=== PATIENT | male | born 1955 | race Caucasian/White ===

== ENCOUNTER 2016-09-18 03:16 | Inpatient (IN) ==
[2016-09-13 10:11] LABS: MANUAL DIFF NEEDED? NO; URINE MICRO REVIEW NEEDED? NO; URINE SOURCE CLEAN CATCH
--- NOTE | 2016-09-13 10:15 | EKG Report ---
Test Performed on : 09/13/2016 09:38:10 AM Test Reason : PAT Blood Pressure : / mmHG Vent. Rate : 067 BPM Atrial Rate : 067 BPM P-R Int : 170 ms QRS Dur : 094 ms QT Int : 422 ms P-R-T Axes : 049 -12 074 degrees QTc Int : 445 ms Normal sinus rhythm. Possible Left atrial enlargement Borderline ECG When compared with ECG of 18-MAY-2012 12:30, ST less depressed in aVL T waves inverted in V1 and V2 are noted; T wave less inverted in V2 RSR' or QR pattern in V1 suggests right ventricular conduction delay Confirmed by Higinio Alonzo DO ([id number]) on 09/14/2016 1:36:11 PM
[2016-09-13 11:29] LABS: BILIRUBIN URINE NEGATIVE (NEGATIVE); BLOOD URINE NEGATIVE (NEGATIVE); COLOR YELLOW; GLUCOSE URINE NEGATIVE (NEGATIVE); LEUKOCYTES URINE NEGATIVE (NEGATIVE); NITRITE URINE NEGATIVE (NEGATIVE); PH URINE 6.5; PROTEIN URINE NEGATIVE (NEGATIVE); SP GRAVITY URINE 1.017; TURBIDITY URINE CLEAR (CLEAR); UROBILINOGEN URINE NORMAL (NORMAL)
[2016-09-13 11:30] LABS: BASO% 0.6 % (0.0-0.8); EOS# 0.46 X1000 (0.0-0.7); EOS% 4.4 % (0.0-10.0); HEMATOCRIT 44.5 % (42.0-52.0); HEMOGLOBIN 15.1 g/dL (14.0-18.0); IMM GRAN# 0.12 X1000 (0.0-0.04); IMM GRAN% 1.2 % (0.0-0.5); LYMPH# 2.39 X1000 (1.2-3.4); MCH 31.3 PG (27-31); MCHC 33.9 g/dL (33-37); MCV 92.1 FL (81-99); MONO# 1.02 X1000 (0.11-0.59); MONO% 9.8 % (1.7-9.3); MPV 10.7 FL (7.4-10.4); PLT 278 X1000 (130-400); RBC 4.83 XMIL (4.7-6.1)
[2016-09-13 11:31] LABS: UR EPITHELIAL CELLS <10 /HPF (<10); URINE BACTERIA NEGATIVE /HPF; URINE RBC <10 /HPF (<10); URINE WBC <10 /HPF (<10)
[2016-09-13 11:38] LABS: INR 0.93; PROTIME 9.7 Seconds (9.2-11.7); PTT 25.4 Seconds (22.0-36.0)
[2016-09-13 11:50] LABS: AGAP 14; BUN 26 mg/dL (8-22); CALCIUM 9.9 mg/dL (8.8-10.2); CHLORIDE 101 mmol/L (98-107); COSMO 289; POTASSIUM 4.9 mmol/L (3.5-5.1); SODIUM 142 mmol/L (136-145); TCO2 27 mmol/L (25-35)
[2016-09-18] MEDS ORDERED: REGLAN ONE (09:55)
[2016-09-18] MEDS ORDERED: PEPCID ONE (09:55)
[2016-09-18] MEDS ORDERED: KEFZOL 2 GM/D5W 2 GM/50 ML IVPB ONE (09:56)
[2016-09-18] MEDS ORDERED: LYRICA ONE (09:56)
[2016-09-18] MEDS ORDERED: LR 1,000 ML ONE (09:56)
[2016-09-18] MEDS ORDERED: CELEBREX ONE (09:56)
[2016-09-18] MEDS: COLACE PO SCH ×2 (10:20→19:54)
[2016-09-18] MEDS ORDERED: DIPRIVAN 1% ONE ×3 (10:56→13:05)
[2016-09-18] MEDS ORDERED: FENTANYL ONE (10:58)
[2016-09-18] MEDS ORDERED: VERSED ONE ×2 (10:58→11:24)
[2016-09-18] MEDS ORDERED: TORADOL ONE (11:01)
[2016-09-18] MEDS ORDERED: DURAMORPH ONE (11:01)
[2016-09-18] MEDS ORDERED: SODIUM CHLORIDE 0.9% ONE (11:01)
[2016-09-18] MEDS ORDERED: SENSORCAINE 0.25%/EPI 1:200,000 ONE (11:01)
[2016-09-18] MEDS ORDERED: CYKLOKAPRON 1,000 MG/NS 1,000 MG/100 ML IVPB ONE (11:01)
[2016-09-18] MEDS ORDERED: EXPAREL 1.3% ONE (11:02)
[2016-09-18] MEDS ORDERED: NEOSPORIN G.U. IRRIGANT ONE (11:02)
[2016-09-18] MEDS ORDERED: XYLOCAINE 2% JELLY ONE (11:36)
[2016-09-18] MEDS ORDERED: EPHEDRINE ONE (11:47)
[2016-09-18] MEDS ORDERED: OFIRMEV 1000 MG/ISOTONIC SOLN 1,000 MG/100 ML BOTTLE ONE (12:00)
[2016-09-18 12:39] LABS: URINE MICRO REVIEW NEEDED? NO; URINE SOURCE CATH
[2016-09-18 12:44] LABS: BILIRUBIN URINE NEGATIVE (NEGATIVE); BLOOD URINE NEGATIVE (NEGATIVE); COLOR STRAW; GLUCOSE URINE NEGATIVE (NEGATIVE); LEUKOCYTES URINE NEGATIVE (NEGATIVE); NITRITE URINE NEGATIVE (NEGATIVE); PH URINE 6.5; PROTEIN URINE NEGATIVE (NEGATIVE); SP GRAVITY URINE 1.002; TURBIDITY URINE CLEAR (CLEAR); UROBILINOGEN URINE NORMAL (NORMAL)
[2016-09-18 12:45] LABS: UR EPITHELIAL CELLS <10 /HPF (<10); URINE BACTERIA NEGATIVE /HPF; URINE RBC <10 /HPF (<10); URINE WBC <10 /HPF (<10)
[2016-09-18] MEDS ORDERED: ZOFRAN ONE (13:07)
[2016-09-18] MEDS ORDERED: DECADRON ONE (13:07)
--- NOTE | 2016-09-18 14:00 | OPERATIVE NOTE ---
PROCEDURE DATE: 09/18/2016 PREOPERATIVE DIAGNOSIS: Degenerative joint disease, left hip. POSTOPERATIVE DIAGNOSIS: Degenerative joint disease, left hip. PROCEDURE PERFORMED: Left anterior hip replacement. SURGEON: Lizet Rowland MD. FINANCING ANALYST: Jacinto Vargas. ANESTHESIA: Spinal. COMPLICATION: None. PROCEDURE IN DETAIL: This 60-year-old male with end-stage DJD about the left hip presents for left surgical hip replacement. Risks, benefits, and no guarantees were discussed, and he is willing to proceed. He was taken to the operating room and satisfactory anesthesia obtained. The left hip was prepped and draped in usual sterile fashion. A time-out was taken to confirm operative site, procedure, and patient. The anterior approach to the hip was undertaken beginning with an incision starting 1 cm lateral and distal to the anterior superior iliac spine and extended roughly 12 cm over the tensor fascia nerissa. The fascia of the tensor was then split in line with the incision, and blunt dissection along the inner membrane undertaken down to the anterior hip capsule. A capsulotomy incision was made and Cobra retractor was placed over the superior and inferior aspect of the femoral neck. Femoral neck osteotomy was made with a saw and the femoral head removed. Sequential reaming in the acetabulum was undertaken under direct vision up to a 61 reamer. A [employer] [place] 62 outer diameter cup was then impacted in the acetabulum under fluoroscopic guidance in roughly 10-15 degrees of anteversion and 45 degrees of abduction. This had good secure press-fit fixation. A 25 length screw was placed in the 12 o'clock position of the cup. A 36 mm inner diameter 0 degree polyethylene liner was then impacted into the cup. The cup liner interface and liner bone interface was checked and was noted to be stable. After preparation of the acetabular component, the leg was placed in extension and externally rotated to facilitate broaching of the proximal femur. Broaching of the proximal femur with the [employer] Corail broach system was undertaken up to a size 11 stem. The standard neck geometry reproduced the anatomy and stability of the hip. A 1.5, 36 head with this trial stem provided good catholic of leg lengths and stability. The trial stem was removed and a standard neck size 11 Corail stem impacted in the proximal femur in roughly 10 degrees of anteversion with secure axial and rotational stability. A 36 ceramic, 1.5 neck length head was impacted on this and the hip reduced. The leg was then checked for stability with no posterior instability and no anterior instability up to 70 degrees of external rotation and 30 degrees of extension. The wound was copiously irrigated with irrigant. The C-arm was used to check catholic of leg lengths with possibly 2-3 mm lengthening of the operative side compared to preoperatively. This was felt to be acceptable to avoid dropping down to a minus head with a metal articulation on poly as opposed to ceramic. The joint was injected with Exparel for pain management. A Hemovac drain was placed. The tensor fascia was closed with a running 0 Vicryl, the subcutaneous with 2-0 Vicryl, and the skin with skin tierra. Sterile dressings completed the closure, and the patient was recovered from anesthesia and transferred to the recovery room in stable condition. No intraoperative complications were noted. Instrument count and sponge count were correct at the time of closure. cc: Juan Rowland MD
[2016-09-18] MEDS ORDERED: NS 1,000 ML ONE (14:10)
[2016-09-18] MEDS: NORCO-10 PO PRN ×4 (15:28→23:56)
[2016-09-18] MEDS: LOPRESSOR PO SCH ×2 (15:30→19:54)
[2016-09-18] MEDS ORDERED: PNEUMOVAX 23 IM ONE (15:45)
[2016-09-18] MEDS: LOVAZA PO SCH ×3 (15:58→19:55)
[2016-09-18] MEDS: PRAVACHOL PO SCH (15:58)
[2016-09-18] MEDS: PLAVIX PO SCH (15:59)
[2016-09-18] MEDS: NORVASC PO SCH (15:59)
--- NOTE | 2016-09-18 16:49 | PROGRESS NOTE ---
DATE: 09/18/2016 POSTOP CHECK: Mr. Bray is seen for a postop check status post anterior hip replacement. At the present time, he is afebrile with stable vital signs. The incision is clean and dry. He has minimal complaints of pain. Toes are up and downgoing actively with no motor or sensory deficits. There are no signs of DVT. He appears to be stable at the present time. cc: Juan Rowland MD
[2016-09-18] MEDS: NS 1,000 ML IV SCH (16:50)
[2016-09-18] MEDS ORDERED: CYKLOKAPRON 1,000 MG in NS 100 ML IV ONE (18:00)
[2016-09-18] MEDS: MORPHINE IV PRN ×3 (18:33→22:16)
[2016-09-18] MEDS: KEFZOL 1 GM/D5W 1 GM/50 ML IVPB IV SCH (19:03)
[2016-09-18] MEDS: PERIDEX MT SCH (19:54)
[2016-09-19] MEDS: MORPHINE IV PRN ×4 (00:36→09:27)
[2016-09-19] MEDS: COLACE PO SCH ×2 (02:30→08:31)
[2016-09-19] MEDS: LOPRESSOR PO SCH ×2 (02:31→08:31)
[2016-09-19] MEDS: PERIDEX MT SCH ×2 (02:31→08:31)
[2016-09-19] MEDS: LOVAZA PO SCH ×2 (02:32→08:31)
[2016-09-19] MEDS: KEFZOL 1 GM/D5W 1 GM/50 ML IVPB IV SCH (02:59)
[2016-09-19] MEDS: NS 1,000 ML IV SCH ×2 (02:59→09:11)
[2016-09-19] MEDS: NORCO-10 PO PRN ×2 (04:12→08:30)
[2016-09-19 05:52] LABS: HEMATOCRIT 30.8 % (42.0-52.0); HEMOGLOBIN 10.5 g/dL (14.0-18.0)
[2016-09-19] MEDS ORDERED: XARELTO PO SCH (06:00)
[2016-09-19 06:30] LABS: AGAP 12; BUN 17 mg/dL (8-22); CHLORIDE 104 mmol/L (98-107); COSMO 282; POTASSIUM 4.4 mmol/L (3.5-5.1); SODIUM 140 mmol/L (136-145); TCO2 24 mmol/L (25-35)
[2016-09-19 07:44] VITALS: BP 136/70
[2016-09-19] MEDS: NORVASC PO SCH (08:30)
[2016-09-19] MEDS: PLAVIX PO SCH (08:30)
[2016-09-19] MEDS: PRAVACHOL PO SCH (08:31)
[2016-09-19] MEDS ORDERED: CELEBREX PO SCH (09:00)
[2016-09-19] MEDS ORDERED: TRICOR PO SCH (09:00)
--- NOTE | 2016-09-19 13:25 | DISCHARGE SUMMARY ---
ADMISSION DATE: 09/18/2016 DISCHARGE DATE: 09/19/2016 ADMITTING DIAGNOSIS: Degenerative joint disease of the left hip. ADDITIONAL DIAGNOSES: 1. History of depression. 2. Coronary disease. 3. Sleep apnea. DISCHARGE DIAGNOSES: 1. History of depression. 2. Coronary disease. 3. Sleep apnea. ADMITTING HISTORY AND HOSPITAL COURSE: This is a 60-year-old male with end-stage DJD about the left hip was submitted for left anterior hip replacement. He underwent hip replacement without complication. He was monitored overnight and remained stable with stable vital signs. At the present time, he is mobilizing with a walker. There is no signs of infection or DVT. He is discharged home for outpatient followup and to receive home therapy. He is to return in roughly 12 days. He can return in the interim for any worsening signs or symptoms. DISCHARGE MEDICATIONS: 1. Amlodipine 5 mg daily. 2. Celebrex 200 mg a day. 3. Clopidogrel 75 mg daily. 4. Fenofibrate 145 mg daily. 5. [place] 10 1-2 q.4-6 hours p.r.n. pain. 6. Metoprolol 50 mg daily. 7. Pravastatin 40 mg daily. 8. Xarelto 10 mg daily for 2 weeks. cc: Juan Rowland MD
== END 2016-09-19 12:38 | disposition home health service (06) ==
LOC: SURHOLD 03:16 → 4N 13:29
PROVIDERS: ADMIT Orthopaedic Surgery Adult Reconstructive Orthopaedic Surgery; ATTEND Orthopaedic Surgery Adult Reconstructive Orthopaedic Surgery

== ENCOUNTER 2018-08-01 21:45 | Observation (INO) ==
[2018-08-01] MEDS ORDERED: MORPHINE IV ONE (22:47)
[2018-08-01] MEDS ORDERED: NS 1,000 ML IV ONE (22:48)
[2018-08-01] MEDS ORDERED: ZOFRAN IV ONE (22:48)
[2018-08-01 22:59] LABS: BASO# 0.06 X1000 (0.0-0.2); BASO% 0.6 % (0.0-0.8); EOS# 0.46 X1000 (0.0-0.7); EOS% 4.5 % (0.0-10.0); HEMATOCRIT 44.4 % (42.0-52.0); HEMOGLOBIN 15.4 g/dL (14.0-18.0); IMM GRAN# 0.08 X1000 (0.0-0.04); IMM GRAN% 0.8 % (0.0-0.5); LYMPH# 2.34 X1000 (1.2-3.4); LYMPH% 22.9 % (20.5-51.1); MCH 30.3 PG (27-31); MCHC 34.7 g/dL (33-37); MCV 87.2 FL (81-99); MONO# 0.83 X1000 (0.11-0.59); MONO% 8.1 % (1.7-9.3); NEUT# 6.44 X1000 (1.4-6.5); NEUT% 63.1 % (42.2-75.2); PLT 281 X1000 (130-400); RBC 5.09 XMIL (4.7-6.1); RDW 14.6 % (11.5-14.5); WBC 10.21 X1000 (4.8-10.8)
[2018-08-01 23:06] LABS: INR 0.87; PROTIME 12.5 Seconds (11.0-16.0)
[2018-08-01 23:07] LABS: PTT 25.2 Seconds (22.3-41.8)
[2018-08-01 23:25] LABS: AGAP 15; ALB/GLOB RATIO 1.9; ALBUMIN 4.5 g/dL (3.5-5.0); ALKALINE PHOSPHATASE 55 U/L (32-122); BUN 18 mg/dL (8-22); CALCIUM 9.6 mg/dL (8.8-10.2); CHLORIDE 102 mmol/L (98-107); COSMO 286; CREATININE 1.1 mg/dL (0.7-1.2); ESTIMATED GFR > 60; GLUCOSE 122 mg/dL (70-104); GOT 23 U/L (10-34); GPT 36 U/L (10-44); SODIUM 142 mmol/L (136-145); TCO2 25 mmol/L (25-35); TOTAL BILIRUBIN 0.29 mg/dL (0.20-1.00); TOTAL PROTEIN 6.9 g/dL (6.3-8.3)
--- NOTE | 2018-08-01 23:50 | PROVIDER DOCUMENTATION ---
This chart was entered by Devika Roldan Scribe, acting as scribe for Benny Santizo MD. HPI-Chest Pain - General Chief Complaint: Chest Pain Stated Complaint: CHEST PAIN(HEART PT) Time Seen by Provider: 08/01/18 22:40 Source: patient Allergies/Adverse Reactions: Patient Allergies Allergy/AdvReac Type Severity Reaction Status Date / Time No Known Allergies Allergy Verified 05/18/12 12:45 Home Medications: Home Medication List Medication Instructions Recorded Confirmed Last Taken Type Amlodipine [Norvasc] 10 mg PO DAILY 05/18/12 09/18/16 09/17/16 History Aspirin 81 mg PO DAILY 05/18/12 09/13/16 09/07/16 History Clopidogrel Bisulfate [Plavix] 75 mg PO DAILY 05/18/12 09/13/16 09/07/16 History Metoprolol [Lopressor] 50 mg PO BID 05/18/12 09/18/16 09/18/16 07:00 History Celecoxib [Celebrex] 200 mg PO DAILY 09/13/16 09/18/16 09/15/16 History Fenofibrate 50 mg PO DAILY 09/13/16 09/18/16 09/17/16 History Hydrocodone/Acetaminophen [[place] 0.5 tab PO HS 09/13/16 09/18/16 09/17/16 History 10-325 Tablet] [place]-3 Acid Ethyl Esters [Lovaza] 1 gm PO 4XDAY 09/13/16 09/18/16 09/15/16 History PRAVAstatin [Pravachol] 20 mg PO DAILY 09/13/16 09/18/16 09/17/16 History Oxycodone/APAP 10 mg/325 mg 1 each PO Q4-6H PRN PRN #40 tablet 09/19/16 Unknown Rx [Percocet-10] Rivaroxaban [Xarelto] 10 mg PO DAILY@0600 tablet 09/19/16 Unknown Rx - History of Present Illness-CP Nature of Presenting Problem: Pt is 62/m presenting to ED w/ substernal chest pains that started a few days ago, he sts that 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 Pain is described as a burning pain accompanied by SOB nausea and weakness w/ lightheadedness. Pt has hx of MIx3 and has had stents placed. 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 Last cardiac work up with in /February. Location: reports: substernal Chest Pain Radiation: reports: no radiation Quality of Pain: reports: burning Severity in ED: moderate Onset/Duration: gradual, this evening Timing: still present, getting worse Context/Activities at Onset: reports: none Modifying Factors: improves with: nothing Associated Symptoms: reports: dizziness, nausea, shortness of breath, weakness. denies: vomiting Nitro Today/Relief: 0.4 mg x 1 Aspirin Treatment Today: provided at home Prior Chest Pain/Cardiac Workup: reports: heart attack, stress test Similar Symptoms Previously?: Yes Recently Seen Here or By Another Healthcare Provider: No Review of Systems - Adult - REVIEW OF SYSTEMS - ADULT Constitutional: reports: no symptoms reported Eyes: reports: no symptoms reported Ears, Nose, Mouth & Throat: reports: no symptoms reported Cardiovascular: reports: chest pain. denies: edema, palpitations Respiratory: reports: no symptoms reported Gastrointestinal: reports: no symptoms reported Genitourinary: reports: no symptoms reported Musculoskeletal: reports: no symptoms reported Integumentary: reports: no symptoms reported Neurological: denies: dizziness/vertigo, headache/migraines Psychiatric: reports: no symptoms reported Endocrine: reports: no symptoms reported Hematologic/Lymphatic: reports: no symptoms reported Allergic/Immunologic: reports: no symptoms reported All Other Systems: Reviewed and Negative Past History - Adult - PAST MEDICAL HISTORY-ADULT Review of Records: reports: Old Records Reviewed, Nursing Assessment Review, Medications Reviewed, Social history reviewed & non-contributory. Cardiovascular: reports: HTN, [place] Respiratory: reports: denies history Gastrointestinal: reports: denies history Obstetrical/Gynecological: reports: denies history Genitourinary: reports: denies history Musculoskeletal: reports: denies history Neurological: reports: denies history Psychiatric: reports: denies history Endocrine/Immune: reports: denies history Other Conditions: reports: denies history - SOCIAL HISTORY Smoking: denies, non-smoker Alcohol Use Frequency: rarely Living Situation: family Physical Exam-General - PHYSICAL EXAM-ADULT Initial Vital Signs Reviewed: Yes - CONSTITUTIONAL General Appearance: appears well, alert, no apparent distress - EYES Eyes: PERRL/EOMI, pink conjunctivae - HEAD, EARS, NOSE, MOUTH & THROAT HENMT: normocephalic/atraumatic, moist mucous membranes, normal ENT inspection, TMs normal, pharynx normal - NECK Neck: non-tender, full range of motion, supple, normal inspection - RESPIRATORY Respiratory: lungs clear - CARDIOVASCULAR Cardiovascular: regular rate, rhythm - GASTROINTESTINAL (ABDOMEN) Abdominal Exam: normal bowel sounds, non tender, soft - LYMPHATIC Lymphatic: no adenopathy - MUSCULOSKELETAL Back Exam: normal inspection, no CVA tenderness, no vertebral tenderness Extremity: normal range of motion, non-tender, normal gait, normal inspection - SKIN Integumentary: normal color, warm/dry - NEUROLOGIC Neurologic: grossly normal - PSYCHIATRIC Psych/Mental Status: normal mood/affect, normal thought content, normal thought process, oriented x 3 Progress - PLAN OF CARE/RESULTS Progress/Plan/Lab Results: Vital Signs - 8 hr 08/01/18 22:32 Temperature 98.3 F Pulse Rate 62 Respiratory Rate 18 Blood Pressure 112/57 O2 Sat by Pulse Oximetry 96 Laboratory Results - last 24 hr 08/01/18 08/01/18 08/01/18 22:45 22:45 22:45 WBC 10.21 RBC 5.09 Hgb 15.4 Hct 44.4 MCV 87.2 MCH 30.3 MCHC 34.7 RDW Std Deviation 14.6 H Plt Count 281 MPV 10.0 Immature Gran % (Auto) 0.8 H Neut % (Auto) 63.1 Lymph % (Auto) 22.9 [place] % (Auto) 8.1 Eos % (Auto) 4.5 Baso % (Auto) 0.6 Immature Gran # (Auto) 0.08 H Neut # (Auto) 6.44 Lymph # (Auto) 2.34 [place] # (Auto) 0.83 H Eos # (Auto) 0.46 Baso # (Auto) 0.06 PT INR PTT (Actin FS) Sodium 142 Potassium 4.0 Chloride 102 Carbon Dioxide 25 Anion Gap 15 BUN 18 Creatinine 1.1 Estimated GFR/1.73 m2 > 60 BUN/Creatinine Ratio 16 Glucose 122 H Calculated Osmolality 286 Calcium 9.6 Total Bilirubin 0.29 AST 23 ALT 36 Alkaline Phosphatase 55 Troponin T Joz-G-Ofawwrwiugu Pept 74 Total Protein 6.9 Albumin 4.5 Globulin 2.4 Albumin/Globulin Ratio 1.9 08/01/18 08/01/18 22:45 22:45 WBC RBC Hgb Hct MCV MCH MCHC RDW Std Deviation Plt Count MPV Immature Gran % (Auto) Neut % (Auto) Lymph % (Auto) [place] % (Auto) Eos % (Auto) Baso % (Auto) Immature Gran # (Auto) Neut # (Auto) Lymph # (Auto) [place] # (Auto) Eos # (Auto) Baso # (Auto) PT 12.5 INR 0.87 PTT (Actin FS) 25.2 Sodium Potassium Chloride Carbon Dioxide Anion Gap BUN Creatinine Estimated GFR/1.73 m2 BUN/Creatinine Ratio Glucose Calculated Osmolality Calcium Total Bilirubin AST ALT Alkaline Phosphatase Troponin T < 0.010 Eux-C-Xtjwwenuuse Pept Total Protein Albumin Globulin Albumin/Globulin Ratio Orders Category Date Time Status cxr [CHEST-1 VIEW] [RAD] Stat Exams 08/01/18 22:47 Taken CBC WITH ELECTRONIC DIFF [HEME] Stat Lab 08/01/18 22:45 Completed COMPREHENSIVE METABOLIC PANEL [CHEM] Stat Lab 08/01/18 22:45 Completed PRO B-NATRIURETIC PEPTIDE Stat Lab 08/01/18 22:45 Completed PROTIME WITH INR [COAG] Stat Lab 08/01/18 22:45 Completed PTT [COAG] Stat Lab 08/01/18 22:45 Completed TROPONIN T Stat Lab 08/01/18 22:45 Completed 0.9% Sodium Chloride Inj [Ns] 1,000 ml Med 08/01/18 22:48 Discontinued IV 999 mls/hr Morphine Med 08/01/18 22:47 Discontinued 4 mg IV NOW ONE Ondansetron [Zofran] Med 08/01/18 22:48 Discontinued 8 mg IV NOW ONE EKG [EKG] Stat Ther 08/01/18 22:09 Ordered Result Diagrams: 08/01/18 22:45 08/01/18 22:45 - EKG 1 Time of EKG reading by physician:: 22:15 EKG Interpretation (*Must complete 3 of following elements*): Normal (normal sinus rhythm, normal ECG) Rate: 66 Rhythm: sinus QRS: normal WV Interval: normal ST Wave: normal Departure - Departure Date of Disposition Decision: 08/01/18 Time of Disposition Decision: 23:49 DIAGNOSIS: Chest pain Qualifiers: Chest pain type: other chest pain Qualified Code(s): R07.89 - Other chest pain; R07.8 - Other chest pain Disposition: ADMITTED INPATIENT 09 Certified Medical Emergency: Emergent Condition: Stable Referrals and Follow-Ups: Sawyer Lockhart MD [Primary Care Provider] - - Critical Care Note This patient required my direct & personal management of CC.: No Attestation - Physician/ ED Attestation Patient care was provided by Advanced Practice Provider:: No The physician spent face to face time with patient:: Yes Advanced Practice Provider documentation review:: Supervising physician onsite and consulted in the evaluation and care of this patient. The physician did have a face to face encounter with the patient. This chart was documented by the indicated scribe, (Devika Roldan, Scribe) and accurately reflects the services I performed and decisions made by me, Benny Wang MD, as attested by the provider's signature.
[2018-08-02] MEDS ORDERED: NITROGLYCERIN SL PRN (02:20)
[2018-08-02] MEDS ORDERED: ZOFRAN IV PRN (02:20)
[2018-08-02] MEDS ORDERED: TYLENOL PO PRN (02:20)
--- NOTE | 2018-08-02 05:28 | Diag Imaging Result Doc PS360 ---
EXAM: CHEST-1 VIEW HISTORY: chest pain TECHNIQUE: Chest single view COMPARISON: 05/18/2012 FINDINGS: Poor inspiratory effort. There are sternal wires and surgical clips. No cardiomegaly. No pneumonia. No pleural effusions identified. IMPRESSION: Negative exam. Electronically signed by Robb Bethea 08/02/2018 5:26 AM
[2018-08-02] MEDS: PRILOSEC PO SCH ×2 (06:18→09:45)
--- NOTE | 2018-08-02 07:14 | HISTORY AND PHYSICAL ---
CHIEF COMPLAINT: Chest pain. HISTORY OF PRESENT ILLNESS: Mr. Bray is a very pleasant 62-year-old male who comes into the emergency room today after having intermittent chest pain with activity for around the last week. Last night, he had chest pain with rest that was relieved with nitroglycerin and aspirin which he took prior to arrival. He has a past medical history of coronary artery disease with 3 myocardial infarctions, a quadruple bypass and cardiac stenting x2. He also has hypertension and hyperlipidemia. He will be admitted for further evaluation and treatment. PAST MEDICAL HISTORY: See HPI. PREVIOUS SURGICAL HISTORY: 1. Coronary artery bypass graft. 2. Orthopedic surgery. 3. Cholecystectomy. SOCIAL HISTORY: Lives at home with his . 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 Uses alcohol rarely. No tobacco or illicit drugs. FAMILY HISTORY: Father from myocardial infarction at age 49. ALLERGIES: No known drug allergies. HOME MEDICATIONS: 1. Fenofibrate 145 mg one tablet p.o. daily. 2. Amlodipine 5 mg p.o. daily. 3. Aspirin 81 mg p.o. daily. 4. Atorvastatin 40 mg p.o. daily. 5. Plavix 75 mg p.o. daily. 6. Metoprolol 50 mg p.o. b.i.d. REVIEW OF SYSTEMS: Fourteen point review of systems reviewed with the patient. Pertinent positives listed above in the HPI. He also stated that he had nausea on the way in last night, but never had vomiting. All other systems were reviewed and found to be negative. PHYSICAL EXAMINATION: VITAL SIGNS: Temperature 97.4 degrees, pulse 65, respirations 18, blood pressure 148/49, oxygen saturation 98% on room air. GENERAL: Pleasant, obese 62-year-old male lying in the ER stretcher. Answers all questions appropriately. He is alert and oriented x3 and in no acute distress. HEENT: Head is atraumatic, normocephalic. Pupils equal, round and reactive to light. Extraocular eye movements are intact. Sclerae nonicteric. Conjunctivae pink. Oral mucosa is moist. NECK: Supple. No JVD. No thyromegaly. Trachea is midline. No cervical lymphadenopathy. CARDIAC: S1, S2 appreciated. No murmurs, gallops, rubs. LUNGS: Clear to auscultation bilaterally. No rhonchi, wheezes, rales. Symmetric rise and fall of respirations. ABDOMEN: Soft, nondistended, nontender. It is protuberant. Bowel sounds present in all 4 quadrants. Normoactive. No pulsatile masses or organomegaly. EXTREMITIES: No cyanosis, clubbing or edema. 2+ pedal pulses bilaterally. GENITOURINARY: No bladder distention. The patient voids. Otherwise deferred. NEUROLOGICAL: Alert and oriented x3. Cranial nerves 2-12 grossly intact. DIAGNOSTIC DATA: Chest x-ray, no cardiomegaly, poor inspiratory effort. No infiltrates. No edema. LABORATORY DATA: CBC within normal limits. Coags within normal limits. Chemistry within normal limits other than glucose of 122. CK and troponin negative x1 set. ASSESSMENT AND PLAN: 1. Chest pain, rule out acute myocardial infarction. Trend cardiac enzymes. Consult Cardiology. Stress test in a.m. Nitroglycerin as needed for pain. Continue patient's home aspirin and Plavix. 2. Hypertension. Continue home medications. 3. Hyperlipidemia. Check a lipid profile. Continue atorvastatin. 4. Known coronary artery disease with previous myocardial infarction. See above. 5. Hyperglycemia. Check hematocrit A1c. The patient does not have a diagnosis of diabetes mellitus. Further recommendations per patient's clinical course. Dictated by NORMA Sheets for Dhiraj March MD I have performed a face to face diagnostic evaluation. Labs/ Xrays- reviewed. Exam- chest- clear, CV- regular. A/P- Chest Pain- Admit to observation. Cardiac work up. Cardiology consult. Dr. March cc: NORMA Sheets MD [facility]
[2018-08-02] MEDS ORDERED: NORVASC PO SCH (09:00)
[2018-08-02] MEDS ORDERED: PLAVIX PO SCH (09:00)
[2018-08-02] MEDS ORDERED: TRICOR PO SCH ×2 (09:00)
[2018-08-02] MEDS ORDERED: PRAVACHOL PO SCH (09:00)
[2018-08-02] MEDS ORDERED: LIPITOR PO SCH (09:00)
[2018-08-02] MEDS ORDERED: LOPRESSOR PO SCH (09:00)
[2018-08-02] MEDS ORDERED: ASPIRIN PO SCH (09:00)
[2018-08-02 12:28] VITALS: BP 144/75
[2018-08-02] MEDS ORDERED: PROTONIX PO SCH (13:30)
--- NOTE | 2018-08-02 19:19 | CONSULTATION ---
DATE OF CONSULTATION: 08/02/2018 IMPRESSION: 1. Acute chest pain syndrome. Patient describes 2 hours of burning chest discomfort last night, not quite like what he experienced with his previous coronary disease episodes in the past. Patient has had normal troponins x2. Overall clinical presentation atypical for acute coronary syndrome and patient describes improvement of symptoms after being administered. Prilosec. 2. Atherosclerotic coronary disease. A. Status post previous myocardial infarction in 2004 followed by coronary bypass grafting x4 vessels. B. Patient relates that he was found to have 2/4 bypass grafts occluded 5 weeks after his bypass surgery. One of his grafts he relates had a stent subsequently placed in it. C. Status post myocardial infarction in 2012 followed by coronary angioplasty/stenting (on the back of his heart). 3. Hyperlipidemia. 4. Obstructive sleep apnea. RECOMMENDATIONS: 1. Telemetry observation. 2. Follow through with serial cardiac enzymes. 3. Continue beta kwaku and anti-platelet therapy. 4. Continue proton pump inhibitor Protonix. 5. If patient continues clinically stable, expresses preference to have follow up with his regular turbo operator, Dr. Shaw at [facility] in [place]. This is certainly not unreasonable and patient indicates that he has appointment for next week on Saturday. HISTORY: This 62-year-old white male with past history of atherosclerotic coronary disease as outlined above, hyperlipidemia, and obstructive sleep apnea was admitted through the emergency room last night with chest pain. He relates that yesterday evening he started getting burning substernal discomfort. He relates the discomfort was not quite like what he had with his previous heart attacks in that previous coronary pain is characterized as a substernal pressure with radiation to both sides of his jaw and teeth. Discomfort was persistent and was ongoing when he arrived to the emergency room. He relates that discomfort seemed to get better about 20 minutes after he took some Prilosec. He had eaten a fairly fatty meal yesterday with fried catfish. He had some brief discomfort of similar nature the night before last. He is fairly active physically and denies any exertional chest discomfort. PAST MEDICAL HISTORY: 1. Atherosclerotic coronary disease as outlined above. 2. Hyperlipidemia. 3. Obstructive sleep apnea. PAST SURGICAL HISTORY: Includes previous coronary bypass surgery, left hip replacement, and unspecified neck surgery. ALLERGIES: No known drug allergies. MEDICATIONS PRIOR TO ADMISSION: As listed. 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 He is about to fully retire when he reaches age 63. He is . He does not smoke. FAMILY HISTORY: Positive for coronary disease. REVIEW OF SYSTEMS: Pulmonary: Negative. Gastrointestinal: Negative beyond history present illness. Constitutional: Negative beyond history of present illness. Remainder review of systems negative/noncontributory beyond history of present illness with 14 total systems reviewed. PHYSICAL EXAMINATION: General: This is a overweight middle-aged male in no distress on room air. Vital signs: Blood pressure 144/75, heart rate 64 and regular. Oxygen saturation 98% on room air. HEENT: Extraocular movements appear intact. Mucous membranes moist. Neck: Supple without jugular venous distention. No carotid bruits. Chest: Clear to auscultation bilaterally. Cardiac Exam: Reveals a regular rate and rhythm without appreciable murmur or gallop. Abdomen: Soft. Bowel sounds are normal. Extremities: Without edema. Neurologic: Reveals him to be alert and fully oriented. Speech is fluent. Moves all 4 extremities equally well. Skin: Warm, dry. Psychiatric: Reveals mood to be appropriate. A 12 lead EKG obtained this morning demonstrates sinus bradycardia but was otherwise within normal limits. LABORATORY DATA: Includes white blood cell count of 10.21, hematocrit 44.4, hemoglobin 15.4, platelet count 281,000. Sodium 142, potassium 4.0, chloride 102, carbon dioxide 25, BUN 18, creatinine 1.1, glucose 122. Initial troponin less than 0.01. Followup troponin less than 0.01. Triglycerides 190, total cholesterol 115, LDL cholesterol 72, HDL cholesterol 28. cc: Byron Pavon MD
--- NOTE | 2018-08-04 07:00 | EKG Report ---
Test Performed on : 08/01/2018 10:15:51 PM Test Reason : CP Blood Pressure : / mmHG Vent. Rate : 066 BPM Atrial Rate : 066 BPM P-R Int : 178 ms QRS Dur : 088 ms QT Int : 426 ms P-R-T Axes : 029 -03 058 degrees QTc Int : 446 ms Normal sinus rhythm. Normal ECG When compared with ECG of 13-SEP-2016 09:38, No significant change was found Unconfirmed Result
--- NOTE | 2018-08-04 07:28 | EKG Report ---
Test Performed on : 08/02/2018 07:39:47 AM Test Reason : CP Blood Pressure : / mmHG Vent. Rate : 058 BPM Atrial Rate : 058 BPM P-R Int : 170 ms QRS Dur : 094 ms QT Int : 456 ms P-R-T Axes : 052 000 020 degrees QTc Int : 447 ms Poor data quality, interpretation may be adversely affected Sinus bradycardia. Otherwise normal ECG When compared with ECG of 01-AUG-2018 22:15, (Unconfirmed) Nonspecific T wave abnormality now evident in Inferior leads Confirmed by Nazia TOMAS, Harish Wilks ([id number]) on 08/04/2018 5:05:35 PM
== END 2018-08-02 17:34 | disposition home or self-care (01) ==
LOC: ED 21:45 → INTOOBSV 21:46 → SUATTDRO 08-02 01:44 → 3N 08-02 01:44
PROVIDERS: ATTEND Emergency Medicine
CPT/HCPCS: 71010; 71045; 80053; 80061; 83036; 83721; 83735; 83880; 84484; 85025; 85610; 85730; 93005; 93010; 94761; 96361; 96374; 96375; 99285; A9270; G0378; J2270; J2405; J7030